=== PATIENT | female | born 1945 | race Two or more races ===

== ENCOUNTER 2019-08-10 07:34 | Day surgery (SDC) | payer OTHER | END 2019-08-10 14:20 | disposition home or self-care (01) | LOC: AMB-ENDOS 07:34 | PROVIDERS: ATTEND Surgery | DX: K62.89 Other specified diseases of anus and rectum (principal) ==

== ENCOUNTER 2019-09-06 09:28 | Outpatient (CLI) | payer OTHER | END 2019-09-06 10:19 | disposition home or self-care (01) | LOC: TOM 09:28 | PROVIDERS: ATTEND Surgery | DX: N73.6 Female pelvic peritoneal adhesions (postinfective) (principal); Z86.010 Personal history of colon polyps ==